=== PATIENT | male | born 1970 | race Caucasian/White ===

== ENCOUNTER 2020-04-27 08:13 | Outpatient (CLI) | payer OTHER, MEDICAID ==
[2020-04-27] VITALS (21 sets, daily range): BP systolic 123–146; BP diastolic 85–101
== END 2020-04-27 23:59 | disposition home or self-care (01) ==
LOC: CARD DIAG 08:13
PROVIDERS: ATTEND Internal Medicine Cardiovascular Disease
DX: R55 Syncope and collapse (principal)
CPT/HCPCS: 93660

== ENCOUNTER 2022-10-08 13:54 | Inpatient (IN) | payer OTHER, MEDICAID ==
[~2022-10-08] VITALS: Ht 177.8 cm; Wt 88.6 kg
[2022-10-08 14:40] LABS: BASOPHILS % (AUTO) 0.4 % (0-1); EOSINOPHILS # (AUTO) 0.2 X10'3 (0-0.9); EOSINOPHILS % (AUTO) 2.5 % (0-6); HEMATOCRIT 42.5 % (42.0-52.0); HEMOGLOBIN 14.4 g/dl (14.0-17.9); LYMPHOCYTES # (AUTO) 1.3 X10'3 (1.1-4.8); LYMPHOCYTES % (AUTO) 20.1 % (21-51); MEAN CORPUSCULAR HEMOGLOBIN 30.2 PG (27.0-31.0); MEAN CORPUSCULAR HGB CONC 33.9 g/dL (33.0-36.5); MEAN PLATELET VOLUME 7.8 FL (7.4-10.4); MONOCYTES # (AUTO) 0.4 X10'3 (0-0.9); MONOCYTES % (AUTO) 6.2 % (2-12); NEUTROPHILS # (AUTO) 4.6 X10'3 (1.8-7.7); NEUTROPHILS % (AUTO) 70.8 % (42-75); PLATELET COUNT 188 X10'3 (140-440); RED BLOOD COUNT 4.78 X10'6 (4.70-6.10); RED CELL DISTRIBUTION WIDTH 13.1 % (11.5-14.5); WHITE BLOOD COUNT 6.5 X10'3 (4.5-11.0)
[2022-10-08 15:01] LABS: ALANINE AMINOTRANSFERASE 96 U/L (12-78); ALBUMIN 3.9 G/DL (3.4-5.0); ALBUMIN/GLOBULIN RATIO 1.3 (1.1-1.5); ALKALINE PHOSPHATASE 34 IU/L (46-116); ANION GAP 7 (8-16); ASPARTATE AMINO TRANSFERASE 82 U/L (10-37); BILIRUBIN,TOTAL 0.5 MG/DL (0.1-1.0); BLOOD UREA NITROGEN 12 MG/DL (7-18); BUN/CREATININE RATIO 14.3 (10.0-20.0); CALCIUM 9.1 MG/DL (8.5-10.1); CHLORIDE 106 MMOL/L (99-107); CREATININE 0.84 MG/DL (0.60-1.10); GLUCOSE 102 MG/DL (70-104); POTASSIUM 4.4 MMOL/L (3.5-5.1); SODIUM 143 MMOL/L (135-145); TOTAL CARBON DIOXIDE 29.7 MMOL/L (24-32); TOTAL PROTEIN 6.8 G/DL (6.4-8.2); eGFR > 90 ML/MIN
[2022-10-08 15:10] LABS: MAGNESIUM 1.7 MG/DL (1.5-2.4)
[2022-10-08] MEDS ORDERED: DIAZ5TAB5 PO (17:11)
[2022-10-08] MEDS ORDERED: FLUO-103 PO (17:11)
[2022-10-08] MEDS ORDERED: CARV25TA2 PO (17:11)
[2022-10-08] MEDS ORDERED: ATOR-2 PO (17:12)
[2022-10-08] MEDS ORDERED: EVOL140P3 SQ (17:12)
[2022-10-08] MEDS ORDERED: LOSA50TA64 PO (17:12)
[2022-10-08] MEDS ORDERED: magnesium Cl slow-release 64mg tablet PO PRN (17:20)
[2022-10-08] MEDS ORDERED: PERFLUTREN PROTEIN-A MICROSPHR (Optison) 0.22 MG/ML 3ML VIAL IV ONE (17:20)
[2022-10-08] MEDS ORDERED: magnesium 2GM in 50ml NS 50 ML IV PRN (17:20)
[2022-10-08] MEDS ORDERED: mag hydrox/Alum hydrox/simeth 30ml oral suspension PO PRN (17:20)
[2022-10-08] MEDS ORDERED: magnesium 4gm in 100ml NS 100 ML IV PRN (17:20)
[2022-10-08] MEDS ORDERED: ondansetron/PF 4mg/2ml inj IV PRN (17:20)
[2022-10-08] MEDS ORDERED: morphine 2 MG/ML inj. syringe IV PRN ×2 (17:20)
[2022-10-08] MEDS ORDERED: potassium Cl 20 mEq SR tablet PO PRN ×2 (17:20)
[2022-10-08] MEDS ORDERED: potassium Cl 40MEQ/1/2NS 520ml 520 ML IV PRN (17:20)
[2022-10-08] MEDS ORDERED: magnesium hydroxide 30ml (MOM) UD suspension PO PRN (17:20)
[2022-10-08] MEDS ORDERED: diazepam 5mg tablet PO PRN (17:35)
[2022-10-08] MEDS: normal saline 1000ml 1,000 ML IV SCH ×2 (17:36→22:33)
[2022-10-08] MEDS: docusate sod 100mg capsule PO SCH (20:00)
[2022-10-08] MEDS: K and/or MAG REPLACEMENT MC SCH (20:00)
--- NOTE | 2022-10-08 21:41 | NUR ---
1830 REC'D PT IN POC IN NAD PENDING ADMIT, ON ALL MONITORS, A&O, SKIN WDI NO SOB/COUGH, C/O LOW BACK PAIN 11/16, IV INTACT PATENT AND SECURED, 20GA L ARM, INFUSING NS AT 100 ML/HR, REQUESTING PAIN MEDS FOR BACK PAIN.
--- NOTE | 2022-10-08 21:44 | NUR ---
NO C/O DIZZINESS NV 2009 PT STATES PAIN BETTER 09/16
[2022-10-08 22:25] VITALS: BP 139/94
[2022-10-08] MEDS: acetaminophen 325mg tablet PO PRN (22:33)
[2022-10-09] VITALS (12 sets, daily range): BP systolic 86–136; BP diastolic 63–97
--- NOTE | 2022-10-09 01:08 | NUR ---
patient came up to floor around 2225pm from ED. went over admission documentation. did skin check no skin issues all skin dry and intact. went over med rec.
--- NOTE | 2022-10-09 07:07 | NUR ---
Patient in room PCU 3012. I have received report from MATT FRANKLIN, and had the opportunity to ask questions and assume patient care.
[2022-10-09 07:10] LABS: BASOPHILS % (AUTO) 0.6 % (0-1); EOSINOPHILS # (AUTO) 0.2 X10'3 (0-0.9); HEMATOCRIT 41.9 % (42.0-52.0); HEMOGLOBIN 14.3 g/dl (14.0-17.9); LYMPHOCYTES # (AUTO) 1.7 X10'3 (1.1-4.8); LYMPHOCYTES % (AUTO) 33.2 % (21-51); MEAN CORPUSCULAR HEMOGLOBIN 30.1 PG (27.0-31.0); MEAN CORPUSCULAR VOLUME 88.4 FL (78-98); MEAN PLATELET VOLUME 7.8 FL (7.4-10.4); MONOCYTES # (AUTO) 0.4 X10'3 (0-0.9); MONOCYTES % (AUTO) 7.9 % (2-12); NEUTROPHILS # (AUTO) 2.8 X10'3 (1.8-7.7); NEUTROPHILS % (AUTO) 55.3 % (42-75); PLATELET COUNT 156 X10'3 (140-440); RED BLOOD COUNT 4.74 X10'6 (4.70-6.10); RED CELL DISTRIBUTION WIDTH 13.3 % (11.5-14.5); WHITE BLOOD COUNT 5.1 X10'3 (4.5-11.0)
[2022-10-09 07:18] LABS: ALBUMIN 3.6 G/DL (3.4-5.0); ANION GAP 8 (8-16); BLOOD UREA NITROGEN 10 MG/DL (7-18); BUN/CREATININE RATIO 12.3 (10.0-20.0); CALCIUM 8.8 MG/DL (8.5-10.1); CHLORIDE 104 MMOL/L (99-107); CREATININE 0.81 MG/DL (0.60-1.10); GLUCOSE 86 MG/DL (70-104); MAGNESIUM 1.8 MG/DL (1.5-2.4); POTASSIUM 3.9 MMOL/L (3.5-5.1); SODIUM 141 MMOL/L (135-145); TOTAL CARBON DIOXIDE 28.7 MMOL/L (24-32); eGFR > 90 ML/MIN
[2022-10-09] MEDS: K and/or MAG REPLACEMENT MC SCH ×2 (08:00→19:25)
[2022-10-09] MEDS ORDERED: ceFAZolin 1000mg inj ONE ×2 (11:25→11:28)
[2022-10-09] MEDS ORDERED: fentaNYL/PF 50MCG/1 ML 2ML syringe ONE (11:25)
[2022-10-09] MEDS ORDERED: midazolam 1 mg/ML 2ml injection ONE ×2 (11:25→12:22)
[2022-10-09] MEDS ORDERED: LIDOcaine 1% W/epiNEPHrine 1:100,000 20ml vial ONE (11:25)
[2022-10-09] MEDS ORDERED: vancomycin/NS 1 GM ADD-VANTAGE 250 ML X 1 DOSE IV ONE (14:10)
[2022-10-09] MEDS: docusate sod 100mg capsule PO SCH ×2 (14:36→19:25)
[2022-10-09] MEDS: atorvastatin 20mg tablet PO SCH (14:36)
[2022-10-09] MEDS: losartan 50mg tablet PO SCH (14:37)
[2022-10-09] MEDS: FLUoxetine 10mg capsule PO SCH (14:38)
--- NOTE | 2022-10-09 17:20 | NUR ---
PAGE SENT PAGER ID: [phone] MESSAGE: [id number], JOSE SAM, DR. LI DID A PRELIMINARY READING OF CXY AND THERE WAS NO PNEUMOTHORAX, PACER IN PLACE. D/C SUSIE? THANK YOU, MIMI [phone]
--- NOTE | 2022-10-09 18:44 | NUR ---
Problems reprioritized. Patient report given, questions answered & plan of care reviewed with MATT ESTRADA.
[2022-10-09] MEDS: acetaminophen 325mg tablet PO PRN (18:49)
[2022-10-09] MEDS ORDERED: acetaminophen 325mg tablet PO PRN (20:35)
[2022-10-09] MEDS: HYDROcodone/acetaminophen 5mg/325mg tablet PO PRN (20:48)
[2022-10-09] MEDS: CefTRIAXone/D5W-Rocephin 1gm 50 ML IV SCH (21:08)
[2022-10-09] MEDS: normal saline 1000ml 1,000 ML IV SCH ×2 (22:53→23:26)
[2022-10-10] MEDS: normal saline 1000ml 1,000 ML IV SCH ×2 (02:58→10:10)
[2022-10-10] MEDS: HYDROcodone/acetaminophen 5mg/325mg tablet PO PRN ×2 (02:58→07:47)
[2022-10-10 03:08] VITALS: BP 130/82
[2022-10-10 06:00] VITALS: BP 141/89
--- NOTE | 2022-10-10 06:00 | NUR ---
Patient in room PCU 3012. I have received report from Karsten GUTIERREZ and had the opportunity to ask questions and assume patient care. Bedside report completed. Pt resting, Call light in reach. Addendum: 10/10/22 at 0703 by Amy Delaney RN Amended: Links added.
[2022-10-10 06:14] LABS: BASOPHILS % (AUTO) 0.3 % (0-1); EOSINOPHILS # (AUTO) 0.1 X10'3 (0-0.9); EOSINOPHILS % (AUTO) 1.9 % (0-6); HEMATOCRIT 42.2 % (42.0-52.0); HEMOGLOBIN 14.3 g/dl (14.0-17.9); LYMPHOCYTES # (AUTO) 1.4 X10'3 (1.1-4.8); LYMPHOCYTES % (AUTO) 20.5 % (21-51); MEAN CORPUSCULAR HEMOGLOBIN 30.1 PG (27.0-31.0); MEAN CORPUSCULAR VOLUME 88.6 FL (78-98); MEAN PLATELET VOLUME 7.9 FL (7.4-10.4); MONOCYTES # (AUTO) 0.5 X10'3 (0-0.9); MONOCYTES % (AUTO) 7.4 % (2-12); NEUTROPHILS # (AUTO) 4.7 X10'3 (1.8-7.7); NEUTROPHILS % (AUTO) 69.9 % (42-75); PLATELET COUNT 164 X10'3 (140-440); RED BLOOD COUNT 4.76 X10'6 (4.70-6.10); RED CELL DISTRIBUTION WIDTH 13.5 % (11.5-14.5); WHITE BLOOD COUNT 6.7 X10'3 (4.5-11.0)
[2022-10-10 06:31] LABS: ALBUMIN 3.5 G/DL (3.4-5.0); ANION GAP 9 (8-16); BLOOD UREA NITROGEN 8 MG/DL (7-18); BUN/CREATININE RATIO 11.8 (10.0-20.0); CALCIUM 8.7 MG/DL (8.5-10.1); CHLORIDE 104 MMOL/L (99-107); CREATININE 0.68 MG/DL (0.60-1.10); GLUCOSE 81 MG/DL (70-104); MAGNESIUM 1.7 MG/DL (1.5-2.4); POTASSIUM 3.5 MMOL/L (3.5-5.1); SODIUM 139 MMOL/L (135-145); TOTAL CARBON DIOXIDE 26.4 MMOL/L (24-32); eGFR > 90 ML/MIN
[2022-10-10] MEDS: FLUoxetine 10mg capsule PO SCH (07:45)
[2022-10-10] MEDS: CefTRIAXone/D5W-Rocephin 1gm 50 ML IV SCH (07:45)
[2022-10-10] MEDS: atorvastatin 20mg tablet PO SCH (07:47)
[2022-10-10] MEDS: losartan 50mg tablet PO SCH (07:48)
[2022-10-10] MEDS: docusate sod 100mg capsule PO SCH (07:49)
[2022-10-10] MEDS: K and/or MAG REPLACEMENT MC SCH (08:00)
[2022-10-10] MEDS ORDERED: CEPH250T PO (09:18)
[2022-10-10 11:37] VITALS: BP 87/89
--- NOTE | 2022-10-10 14:35 | NUR ---
All written and verbal orders for D/C given. post ppm activity and safety reviewed with Pt and . All questions answered. Pt stated he had all belongings. Home with . Addendum: 10/10/22 at 1451 by Amy Delaney RN Amended: Links added.
[2022-10-19] MEDS ORDERED: EVOLOCUMAB SQ SCH (10:00)
== END 2022-10-10 14:44 | disposition home or self-care (01) | DRG 244 ==
LOC: ER 13:55 → ED HOLD 17:19 → OBSVTOIN 17:19 → PCU 3S 22:12
PROVIDERS: ADMIT Family Medicine; ATTEND Family Medicine
PROC: 0JH606Z Insertion of Pacemaker, Dual Chamber into Chest Subcutaneous Tissue and Fascia, Open Approach (ICD-10-PCS; principal; 2022-10-09)
PROC: 02H63JZ Insertion of Pacemaker Lead into Right Atrium, Percutaneous Approach (ICD-10-PCS; 2022-10-09)
PROC: 02HK3JZ Insertion of Pacemaker Lead into Right Ventricle, Percutaneous Approach (ICD-10-PCS; 2022-10-09)
PROC: 0JPT02Z Removal of Monitoring Device from Trunk Subcutaneous Tissue and Fascia, Open Approach (ICD-10-PCS; 2022-10-09)
DX: I49.5 Sick sinus syndrome (principal); E78.5 Hyperlipidemia, unspecified; F32.A Depression, unspecified; I44.30 Unspecified atrioventricular block; I25.10 Atherosclerotic heart disease of native coronary artery without angina pectoris; F12.90 Cannabis use, unspecified, uncomplicated; I42.0 Dilated cardiomyopathy; I48.0 Paroxysmal atrial fibrillation; F41.9 Anxiety disorder, unspecified; I10 Essential (primary) hypertension; V47.5XXA Car driver injured in collision with fixed or stationary object in traffic accident, initial encounter; Z87.891 Personal history of nicotine dependence; Y93.89 Activity, other specified; Y92.488 Other paved roadways as the place of occurrence of the external cause; Y99.8 Other external cause status; Z79.899 Other long term (current) drug therapy
CPT/HCPCS: 33208; 33286; 36415; 71045; 80048; 80053; 83735; 83880; 85025; 87081; 93306; 99152; 99153; 99285; A4565; A6258; A6449; C1785; C1898; G0378; J0690; J0696; J2250; J2270; J3010; J3370; J3490; J7030